=== PATIENT | male | born 1990 | race African-American/Black ===

== ENCOUNTER 2020-01-09 00:32 | Emergency (ER) | payer OTHER ==
[~2020-01-09] VITALS: Ht 182.8 cm; Wt 104.3 kg
== END 2020-01-09 01:35 | disposition short-term general hospital (02) ==
LOC: ED 00:32
DX: S41.102A Unspecified open wound of left upper arm, initial encounter (principal); S41.101A Unspecified open wound of right upper arm, initial encounter; S31.000A Unspecified open wound of lower back and pelvis without penetration into retroperitoneum, initial encounter; W34.09XA Accidental discharge from other specified firearms, initial encounter; Y93.89 Activity, other specified; Y92.89 Other specified places as the place of occurrence of the external cause; Y99.8 Other external cause status